=== PATIENT | male | born 1935 | race Caucasian/White ===

== ENCOUNTER 2016-11-15 14:22 | Inpatient (IN) | payer MEDICARE, OTHER ==
--- NOTE | ~2016-11-15 | HP ---
History And Physical [place] [id number] [facility] [place]. [address] NAME: BERT OH : 37 STATUS : ADM IN [facility]#: [id number] AGE: 81 ADM/REG DATE : 11/15/16 MR#: [id number] REPORT SERV DATE: 11/15/16 DICTATED BY: Jere BLANCAS DATE: 11/15/16 REPORT STATUS : Draft TRANSCRIBED BY: MODL DATE: 11/15/16 DATE OF ADMISSION: 11/15/2016 HISTORY OF PRESENT ILLNESS: 81-year-old male, transferred from [facility] for further evaluation, initially presented there on 11/13/2016 with nausea and vomiting, found to have metabolic acidosis and acute kidney injury with concern for sepsis, has been treated with multiple antibiotics there including Levaquin, Zosyn, and Flagyl. Evaluation of the gallbladder there with ultrasound did show gallstones and gallbladder wall thickening. He does have elevated liver test. He has had a renal ultrasound that showed no hydronephrosis and no stones and an echocardiogram that shows ejection fraction of 60%. The patient's elevated lactate is perplexing as it is markedly elevated and greatly out of proportion to how it looks clinically suggesting the possibility of lab error. The patient will now be admitted to [facility] for further evaluation and treatment. PAST MEDICAL HISTORY: Includes atrial fibrillation with rapid ventricular response, currently rate controlled on oral beta nikolai. The patient is on home Coumadin but this is currently held. History of renal stones with prior lithotripsy, hypertension, hyperlipidemia, coronary disease, esophageal stricture, and dementia. SOCIAL HISTORY: Lives independently. No alcohol, tobacco, or drugs. REVIEW OF SYSTEMS: As per HPI, specifically, negative for high fever or shaking chills. No melena, hematochezia, hemoptysis, or hematuria. All other systems are negative except those mentioned above. FAMILY HISTORY: Positive for heart disease. PHYSICAL EXAMINATION: VITAL SIGNS: Temperature is 96.0, heart rate 78 and irregular, respirations 16, and blood pressure 114/71. GENERAL: Conversant male, in no distress. HEENT: Pupils equal, round, and reactive to light. Extraocular muscles are intact. Oropharynx is clear. NECK: Without JVD, thyromegaly, or bruit. LUNGS: Clear. HEART: Irregular without murmur, rub, or gallop. ABDOMEN: Soft. Positive bowel sounds without organomegaly or mass. The patient has no Gonzales sign. No particular abdominal tenderness or peritoneal signs. EXTREMITIES: No edema. Pulses are trace. SKIN: Without rash or ecchymotic area. JOINTS: Without synovitis, effusion, or deformity. Diffuse osteoarthritic change was noted. NEUROLOGIC: Cranial nerves grossly intact. Motor exam is nonfocal. Sensation unremarkable. Gait was not assessed. AVAILABLE DATA: All labs from [facility], values show sodium 136, potassium 4.3, chloride History And Physical [address] [address] NAME: BERT OH : 37 STATUS : ADM IN [facility]#: [id number] AGE: 81 ADM/REG DATE : 11/15/16 MR#: [id number] REPORT SERV DATE: 11/15/16 DICTATED BY: Jere BLANCAS DATE: 11/15/16 REPORT STATUS : Draft TRANSCRIBED BY: MODL DATE: 11/15/16 105, bicarb 18, BUN 38, creatinine 2.0, glucose 74, bilirubin is 4.6, alkaline phosphatase is 58, AST 172, ALT 96, magnesium 1, troponin 0.22. White count is 15.9, hemoglobin 11.7, hematocrit 35.4, and platelets 55. INR is 1.7. Procalcitonin 43. Flu A and B were negative. IMPRESSION: An 81-year-old male patient with gallstones and gallbladder wall thickening in the setting consistent with sepsis. Other issues include metabolic acidosis of uncertain etiology or severity. Multiple comorbidities as outlined above. PLAN: Admit telemetry bed. Attending Dr. Carlos Blancas. Consult to General Surgery, Dr. Gunter to further evaluate for gallstones. Electrolyte replacement guidelines. Full code status. Clear liquids as tolerated. Routine vitals. Repeat data panel to include CBC, CMP, TSH, stat lactate level, and procalcitonin. Check HIDA scan for 11/16/2016. Hydrate with saline at 125 an hour. Reasonable pain and nausea control will be offered. We will continue Zosyn at 3.375 IV q.8 hours and follow up on procalcitonin and CBC levels as well as observation of his clinical course. Further recommendations pending ongoing evaluation of his data and clinical picture as well as input from Dr. Gunter from General Surgery. [facility]L Jere Blancas M.D. / [id number] CC: Jere Blancas M.D.
--- NOTE | ~2016-11-15 | CN ---
Consultation Report [facility] [address] [place]. [address] NAME: BERT OH : 36 STATUS : ADM IN PAT#: [id number] AGE: 81 ADM/REG DATE : 11/15/16 MR#: [id number] REPORT SERV DATE: 11/23/16 DICTATED BY: TANGELA WEBB DATE: 11/23/16 REPORT STATUS : Draft TRANSCRIBED BY: MODL DATE: 11/23/16 CARDIOLOGY CONSULTATION DATE OF CONSULTATION: 11/23/2016 HISTORY OF PRESENT ILLNESS: The patient is an 81-year-old, white male, who initially presented to [facility] with complaints of nausea, vomiting, and palpitations and was treated there for metabolic acidosis and possible sepsis. He was also given intravenous Cardizem for atrial fibrillation with a rapid ventricular response. He was found there to have gall stones and gallbladder wall thickening and continued to have abdominal pain, and was transferred here to [facility] for further treatment. He is now status post laparoscopic cholecystectomy for gangrenous cholecystitis as well as repair of an incarcerated umbilical hernia. This operation was performed on 11/16/2016. We were consulted for evaluation of his atrial fibrillation, since he is noted to have some bradycardia at night with rates dropping into the low 30s with close to 2 second pauses. He has been on atenolol and digoxin for rate control. Currently, the patient is hemodynamically stable with heart rate in the 50s. Digoxin was held today but the patient did receive 50 mg of atenolol this morning. Complicating his other medical conditions, the patient has apparently began experiencing alcohol withdrawal symptoms. He received some Ativan last night and is currently somewhat drowsy and disoriented. He is resting quietly in bed, in no acute distress, and is able to answer simple questions but is a very poor historian. 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 PAST SURGICAL HISTORY: Includes previous cardiac stenting. The patient's last cardiac catheterization was done on 08/03/2015, which showed patent stents in LAD and RCA with hemodynamically insignificant lesion in the mid distal LAD as well as the mid RCA. The patient's left ventricular ejection fraction was 55% at that time. SOCIAL HISTORY: The patient denies history of smoking. He does have a significant history of alcohol use but no illicit drug use. FAMILY HISTORY: Positive for coronary artery disease in both parents. REVIEW OF SYSTEMS: The patient had significant nausea, vomiting, and diarrhea upon presentation to [facility]. He denies any significant chest pain or shortness of breath. He denies any syncope or presyncope. He does report some dizziness currently and describes it as looking like the Consultation Report [address] [place]. [address] NAME: BERT OH : 37 STATUS : ADM IN PAT#: [id number] AGE: 81 ADM/REG DATE : 11/15/16 MR#: [id number] REPORT SERV DATE: 11/23/16 DICTATED BY: ATNGELA WEBB DATE: 11/23/16 REPORT STATUS : Draft TRANSCRIBED BY: DILEEP DATE: 11/23/16 room is moving. Of note, the review of systems is rather limited due to patient's mental status currently. PHYSICAL EXAMINATION: VITAL SIGNS: Blood pressure is 179/77, heart rate is 54 and irregular, respirations are 18 and nonlabored. The patient is afebrile. GENERAL APPEARANCE: The patient is a chronically ill-appearing, elderly, white male, in no acute distress. HEENT: Unremarkable. NECK: Shows no jugular venous distention with good carotid upstroke. No carotid bruit is appreciated. CHEST: Clear to auscultation bilaterally with diminished breath sounds at the bases. CARDIOVASCULAR: PMI is nondisplaced. S1 is variable, S2 is narrowly split. No gallop is present. ABDOMEN: Soft and nonfocal with surgical incisions noted to be clean, dry, and intact. Bowel sounds are positive. EXTREMITIES: Show no cyanosis, clubbing, or edema. SKIN: Warm and dry with no pallor or icterus. NEURO/PSYCH: The patient is alert and answers simple questions although he is somewhat disoriented in some of his responses and do not make sense at times. He can state the correct year, but thinks that he is in a hospital in [place] currently. No focal neuro deficits are noted. LABORATORY AND DIAGNOSTIC DATA: EKG from yesterday shows atrial fibrillation with a rate of 55 beats per minute. There is a left anterior tracy-block, as well as nonspecific ST-T changes, a prolonged QTc interval of 512 milliseconds. No acute injury pattern is present. Monitor strips show atrial fibrillation with several episodes of bradycardia down to the low 30s and a pause of up to 1.8 seconds. Chemistry panel from today shows a sodium of 138, potassium 3.9, BUN of 10, and creatinine 0.8. CBC from yesterday shows white count of 11, hemoglobin 13.1, hematocrit 38.5, platelet count of 155. Digoxin level drawn yesterday was 0.7. An echocardiogram done at [facility] on 11/13/2016 shows a normal left ventricular ejection fraction of 60%. There is aortic valve sclerosis with mild aortic insufficiency. There is mild mitral regurgitation, left ventricular hypertrophy, and dilated right heart structures with evidence of severe pulmonary artery hypertension with a pulmonary artery systolic pressure of 70-75 mmHg. This echo appears largely unchanged from the one that he had at [facility] in 2015. IMPRESSION: 1. Chronic atrial fibrillation with probable sick sinus syndrome. 2. Coronary artery disease, status post previous stenting. 3. Essential hypertension. 4. Pulmonary artery hypertension. 5. Acute cholecystitis and sepsis, now resolved status post cholecystectomy. 6. History of deep vein thrombosis and pulmonary embolism. 7. History of alcohol abuse and delirium with probable underlying dementia. Consultation Report [address] [address] NAME: BERT OH : 36 STATUS : ADM IN [facility]#: [id number] AGE: 81 ADM/REG DATE : 11/15/16 MR#: [id number] REPORT SERV DATE: 11/23/16 DICTATED BY: TANGELA WEBB DATE: 11/23/16 REPORT STATUS : Draft TRANSCRIBED BY: MODL DATE: 11/23/16 PLAN: 1. Hold digoxin and beta nikolai and monitor heart rate. 2. Check overnight oximetry to screen for sleep apnea. 3. Use electrolyte protocol as needed. 4. Consider electrophysiology consultation. Thank you for the opportunity to participate in the care of this patient. We will follow with you. [place]EREM[place]/DILEEP Tangela Webb NP / [id number] CC: Regina English MD Steven Stubblefield, M.D., F.A.C.C.
--- NOTE | ~2016-11-15 | CN ---
Consultation Report [facility] [address] [place]. [address] NAME: BERT OH : 37 STATUS : ADM IN [facility]#: [id number] AGE: 81 ADM/REG DATE : 11/15/16 MR#: [id number] REPORT SERV DATE: 11/16/16 DICTATED BY: DAREN REID DATE: 11/16/16 REPORT STATUS : Draft TRANSCRIBED BY: MODL DATE: 11/16/16 SURGICAL CONSULTATION DATE OF CONSULTATION: 11/16/2016 HISTORY OF PRESENT ILLNESS: This 81-year-old gentleman presents with admission to the hospital on 11/13/2016 in [facility]. He had nausea, vomiting, and palpitations. He has a history of atrial fibrillation with rapid ventricular rate. He also has a history of coronary artery disease, esophageal stenosis, and DVT with Ella filter. He was evaluated and continued to have right back pain and was transferred to [facility]. The patient had previous documentation showing cholelithiasis with cholecystitis. He had a bilirubin elevated to 6 mg/dL initially, which is now improving consistent with passage of a common duct stone. The patient had a HIDA scan today that revealed nonvisualization of the gallbladder consistent with acute cholecystitis. The contrast passed easily into the GI tract with no evidence of any common duct obstruction. On exam, the patient's abdomen has minimal right upper quadrant tenderness with no rebound, guarding, or mass. He and his sister are aware of the risks, benefits, and alternatives of the procedure and wished to proceed. They have been given the option of restarting his anticoagulation in the light of his history of DVTs and atrial fibrillation and observation, and they wished to proceed with surgery. PAST MEDICAL HISTORY: As above. PAST SURGICAL HISTORY: Silas filter, penile surgery, and angiograms. ALLERGIES: NO KNOWN DRUG OR LATEX ALLERGIES. MEDICATIONS: Please see hospital chart. SOCIAL HISTORY: The patient denies any current alcohol, tobacco, or illicit drug usage. He dipped snuff and drank alcohol in the past. FAMILY HISTORY: Positive for coronary artery disease. REVIEW OF SYSTEMS: No current headache, blurred vision, dizziness, chest pain, shortness of breath, cough, dyspnea on exertion, syncope, palpitations, jaundice, or itching. PHYSICAL EXAMINATION: GENERAL: Well-developed male in no apparent distress. NECK: Supple. No adenopathy. CARDIOVASCULAR: Irregular with a controlled rate. No murmur. ABDOMEN: Soft, nondistended, and nontender. The patient has an incarcerated umbilical hernia. There are no masses. Consultation Report [place] [address] [place] [address] NAME: BERT OH : 36 STATUS : ADM IN [facility]#: [id number] AGE: 81 ADM/REG DATE : 11/15/16 MR#: [id number] REPORT SERV DATE: 11/16/16 DICTATED BY: DAREN REID DATE: 11/16/16 REPORT STATUS : Draft TRANSCRIBED BY: DILEEP DATE: 11/16/16 BACK: No CVA tenderness. EXTREMITIES: No clubbing, cyanosis, edema, or jaundice. LABORATORY DATA: Please see hospital chart. ASSESSMENT: 1. Acute cholelithiasis with recent acute cholecystitis and choledocholithiasis with sepsis. 2. Probable passage of common bile duct stone clinically with no evidence of obstruction on the HIDA scan today. 3. Atrial fibrillation with rapid ventricular rate. 4. History of deep vein thrombosis with Silas filter. PLAN: At this time, the patient wishes to proceed with laparoscopic cholecystectomy. He is aware of the risks, benefits, and alternatives including bleeding, infection, poor cosmetic result, chronic pain, injury to the common bile duct and other intraabdominal structures, and wishes to proceed. He is also aware of the potentials for hernia repair complications such as injury to abdominal structures and recurrence of the hernia. NAVYA/DILEEP Daren Reid M.D. / [id number] CC: Jere Aguayo M.D.
--- NOTE | ~2016-11-15 | DS ---
Discharge Summary [place] [address] [facility] [place]. [address] NAME: BERT OH : 37 STATUS : DIS IN PAT#: [id number] AGE: 81 ADM/REG DATE : 11/15/16 MR#: [id number] REPORT SERV DATE: 11/27/16 DICTATED BY: HERMILO TERAN DATE: 11/26/16 REPORT STATUS : Draft TRANSCRIBED BY: MODL DATE: 11/26/16 ADMISSION DATE: 11/15/2016 DISCHARGE DATE: 11/26/2016 DIAGNOSES: 1. Acute gangrenous cholecystitis, status post lap cholecystectomy. 2. Sepsis secondary to above, resolved. 3. Incarcerated hernia, status post repair. 4. History of atrial fibrillation. 5. Transient bradycardia. 6. Debility. 7. Postop respiratory failure. 8. Hypertension. 9. Cholelithiasis. FOLLOWUP: The patient is to follow up with general surgeon, Dr. Gunter in 1 week and also he has written orders for criss to be removed at the rehab center on 12/01/2016. The patient should follow up with radiology physician, Dr. Mckinley, in 3 to 4 weeks and to follow up with the primary care physician in 1 to 2 weeks. Also, while at rehab, the patient is to have an INR checked every week with a goal INR of 2 to 3. The patient to be referred by primary care for an outpatient sleep study after recovering. HOSPITALIST: 1. Jere Aguayo M.D. 2. Dr. Teran. 3. Critical Care and and Colleagues. CONSULTANTS: 1. General Surgery, Dr. Carlos A Kinney, Dr. Gunter, and Dr. Luque. 2. Cardiology with Dr. Mckinley. PROCEDURES: On 11/16/2016, the patient had primary repair of an incarcerated umbilical hernia and a lap cholecystectomy and an open primary common bowel duct repair of a 4-mm common ductotomy after a cystic duct avulsion during gallbladder dissection. HOSPITAL COURSE: Please see H and P dictated by Jere Aguayo M.D. This is an 81-year-old male with a past medical history of atrial fibrillation on Coumadin as well as a history of hypertension, hyperlipidemia, and some dementia was transferred from [facility] to [facility]. The patient presented to [facility] with nausea, vomiting, acute kidney injury, sepsis, metabolic acidosis, and treated with multiple antibiotics. His gallbladder was evaluated and found to have gallstones and gallbladder wall thickening and also serum with some elevated LFTs. The patient was transferred to [facility], and initially cared for by Dr. Carlos Aguayo with a General Surgery consultation with Discharge Summary [address] [address] NAME: BERT OH : 36 STATUS : DIS IN PAT#: [id number] AGE: 81 ADM/REG DATE : 11/15/16 MR#: [id number] REPORT SERV DATE: 11/27/16 DICTATED BY: HERMILO TERAN DATE: 11/26/16 REPORT STATUS : Draft TRANSCRIBED BY: DILEEP DATE: 11/26/16 Dr. Gunter, and the patient had a HIDA scan which revealed evidence for a cystic duct obstruction with a non-visualization of the gallbladder after 4 hours. The patient was sent to the OR by the general surgeon, Dr. Gunter for a cholecystectomy on 11/16/2016. The patient was transferred to the ICU postop for postop respiratory failure and required prolonged intubation. The patient was extubated and later transferred out of the ICU and placed back on to a regular bed, for which at that time the patient was returned to the Hospitalist Service and cared for by Dr. Teran on 11/21/2016. The patient continued to be followed by General Surgery. Also, he completed his IV antibiotics with IV Zosyn. The patient did not have any recurrence of RVR, but at nighttime was having significant bradycardia to the low 30s, but was asymptomatic. He was on digoxin and atenolol at that time. Cardiology was consulted and seen by Dr. Mckinley and Cardiology discontinued the patient's cardiac med and agreed with discontinuing the digoxin and atenolol, and the patient's heart rate remained controlled thereafter. He continued on his Coumadin and at the time of discharge, INR was therapeutic at 2.3. The patient also received physical therapy during his hospital course. At the time of discharge, the patient was eating well with no nausea and vomiting. No abdominal pain. The vital signs were stable and clinically and hemodynamically stable for discharge and approved for discharge by all specialists. This discharge required greater than 30 minutes. The patient is being discharged to [facility], and the family informed. [facility]/DILEEP Hermilo Teran M.D. / [id number] CC: Hermilo Teran M.D. UNKNOWN Regina Lipscomb M.D., F.A.C.C. Daren Gunter M.D.
--- NOTE | ~2016-11-15 | OP ---
Record Of Operation [facility] [address] [place]. [address] NAME: BERT OH : 37 STATUS : ADM IN [facility]#: [id number] AGE: 81 ADM/REG DATE : 11/15/16 MR#: [id number] REPORT SERV DATE: 11/17/16 DICTATED BY: DAREN REID DATE: 11/16/16 REPORT STATUS : Draft TRANSCRIBED BY: MODL DATE: 11/16/16 DATE OF PROCEDURE: 11/16/2016 PREOPERATIVE DIAGNOSES: 1. Cholelithiasis with acute cholecystitis and sepsis. 2. Biliary obstruction with probable passage of common bile duct stone clinically. 3. Atrial fibrillation, with Coumadin. 4. Hypertension. 5. Thrombocytopenia. 6. Incarcerated umbilical hernia. POSTOPERATIVE DIAGNOSES: 1. Gangrenous cholecystitis. 2. Incarcerated umbilical hernia. PROCEDURE: 1. Primary repair of incarcerated umbilical hernia. 2. Laparoscopic cholecystectomy. 3. Open primary common bile duct repair of 4 mm common ductotomy after cystic duct avulsion during gallbladder dissection. FINDINGS: The patient underwent cholecystectomy and was noted to have gangrenous cholecystitis after umbilical hernia repair. He was noted to have an avulsion of the cystic duct during hydrodissection. The cystic duct stump was approximately 4 mm, and the patient was noted to have a small 4 mm hole on the side of the common duct as he was felt to have a very small cystic duct. A cholangiogram was obtained and decision was made to close this small hole primarily in light of the severe inflammation and comorbidities. OPERATIVE TECHNIQUE: The patient was brought to the operative room, placed on the table in supine position. He had preoperative IV antibiotics. He had OG tube and Tillman catheter. A time-out was completed. Local anesthesia was instilled to the periumbilical skin. A 15 blade knife was used to make incision through the base of the umbilicus. The hernia sac was identified. It was circumferentially dissected along with the incarcerated preperitoneal fat and omentum and was excised and divided and sent to pathology. A finger was inserted in the abdomen. There was no evidence of any other adhesions. The 11 mm trocar was inserted into the abdomen and 15 mm of pneumoperitoneum was obtained. The laparoscope was inserted. There was no evidence of any trocar injury. He was then placed in reverse Trendelenburg and rolled to the left. The patient's gallbladder was not visible secondary to omental adhesions and very dense strict adhesions of the transverse colon to the gallbladder. The dissection began, after an 11 mm subxiphoid and two 5 mm right upper quadrant trocars were placed under direct visualization. Atraumatic graspers were used to elevate the edge of the liver edge until 1 small probe of the gallbladder was identified as it was necrotic. This allowed hydrodissection and careful blunt dissection on the gallbladder wall and the transverse colon was dissected away from the gallbladder. The gallbladder was then aspirated. It was noted to have hydrops and purulent aspirate. Some of the aspirate was sent for culture. The dissection was then began circumferentially using hydrodissection Record Of [address] [place]. [address] NAME: BERT OH : 37 STATUS : ADM IN [facility]#: [id number] AGE: 81 ADM/REG DATE : 11/15/16 MR#: [id number] REPORT SERV DATE: 11/17/16 DICTATED BY: DAREN REID DATE: 11/16/16 REPORT STATUS : Draft TRANSCRIBED BY: MODL DATE: 11/16/16 only. The dissection continued till the infundibulum was identified. It was retracted inferolaterally as best possible, mobilization of the cystic duct at the cystic duct gallbladder junction as the hydrodissection was being used on the medial side between the cystic duct and the cystic artery. The cystic duct stump, which was very short, avulsed from the lateral edge of what appeared to be the common bile duct. It was uncertain secondary to the significant inflammatory thickening. The cystic artery was then completely encircled. It was clipped twice proximally and cauterized on the gallbladder. The gallbladder was then removed from the fossa using electrocautery hook except for one small remnant that was left for retraction. An attempted cholangiogram was then obtained and the biliary radicles were seen and contrast did flow into the duodenum. It was uncertain secondary to contrast leak remnant of the remaining cystic duct or the lateral aspect of the common bile duct. For this reason, I attempted the small 3 to 4 mm hole, which was visualized. I had an attempt at closure with laparoscopically but the angle not sufficient. The decision was then made to open and at this point, a right upper quadrant incision was made after all the instruments and trocars were removed. The abdomen was then entered. The irrigant fluid was aspirated. The rest of the gallbladder was removed from the superior aspect of the fundus and sent to pathology. The wound was then thoroughly irrigated. The ductotomy was then closed with interrupted 4-0 PDS suture in an interrupted fashion. Three sutures were placed under direct visualization to not encroach lateral wall more superficial. There was no evidence of leak after the suture. The abdomen was then thoroughly irrigated, and hemostasis of the hepatic fossa was obtained using electrocautery. Some Tisseel was then placed over the repair. Omentum was then placed in the hepatic fossa and a drain was placed in the right lateral gutter through a separate stab incision that was brought out the right lateral lower trocar site. It was secured to the skin with nonabsorbable suture and placed a drain suction upon abdominal closure. At this point, the umbilical fascia was reapproximated without tension using a 0 Vicryl running suture. The wound was examined. There was no evidence of any bowel leak or other abnormalities. The posterior peritoneum was reapproximated using a running 0 Vicryl suture. Subcutaneous tissues were then thoroughly irrigated, and the fascia was reapproximated in a running looped #1 PDS suture. The skin edges of all three incisions were then closed with criss. The patient was taken to the ICU intubated and critical condition after central line. All sponge and needle counts were reported correct. DH/MODL Daren Reid M.D. / [id number] CC: Duncan Colon MD
--- NOTE | ~2016-11-15 | PUL ---
[id number] [place]. [address] NAME: BERT OH : 37 STATUS : ADM IN [facility]#: [id number] AGE: 81 ADM/REG DATE : 11/15/16 MR#: [id number] REPORT SERV DATE: 11/25/16 DICTATED BY: KELLY CHAO DATE: 11/25/16 REPORT STATUS : Draft TRANSCRIBED BY: MODL DATE: 11/25/16 PULMONARY FUNCTION TEST PROCEDURE PERFORMED: Overnight oximetry performed on room air. The patient spent over 10 minutes with an oxygen saturation less than 88% and had an elevated saturation event index. IMPRESSION: Abnormal study suggestive of sleep-disordered breathing. Consider formal sleep study if clinically indicated. The patient does meet criteria for supplemental oxygen. GENNA/DILEEP Kelly Chao M.D. / [id number] CC: Seble Wilcox M.D.
[~2016-11-15 14:22] MED LIST: ATEN50 PO; AXID150 MG PO; CELEXA20 PO; COUMADIN4 MG PO; FLOMAX4 PO; PRIN20 PO
[2016-11-15] MEDS ORDERED: LAN125 PO (15:15)
[2016-11-15] MEDS ORDERED: CELEXA20 PO (15:15)
[2016-11-15] MEDS ORDERED: CRESTOR10 PO ×2 (15:15)
[2016-11-15] MEDS ORDERED: ATEN100 PO (15:15)
[2016-11-15] MEDS ORDERED: NORV5 PO (15:16)
[2016-11-15] MEDS ORDERED: COUMADIN4 MG PO (15:16)
[2016-11-15 17:00] LABS: BASOPHILS 0.1 %; BASOPHILS ABSOLUTE 0.02 10/3/uL (0.0-0.16); EOSINOPHILS 0.2 %; EOSINOPHILS ABSOLUTE 0.03 10/3/uL (0.0-0.53); HEMATOCRIT 35.3 % (40.0-51.0); HEMOGLOBIN 12.2 g/dL (13.6-17.8); IMMATURE GRANULOCYTES 0.7 %; IMMATURE GRANULOCYTES ABSOLUTE 0.09 10/3/uL (0.0-0.11); LYMPHOCYTES 4.8 %; LYMPHOCYTES ABSOLUTE 0.64 10/3/uL (0.67-4.30); MEAN CORPUS HGB CONC 34.6 g/dL (32.0-36.0); MEAN CORPUSCULAR HEMOGLOB 33.2 pg (26.0-34.0); MEAN CORPUSCULAR VOLUME 95.9 fL (80-100); MEAN PLATELET VOLUME 10.6 fL (9.2-13.0); MONOCYTES 3.1 %; MONOCYTES ABSOLUTE 0.42 10/3/uL (0.21-1.20); NEUTROPHILS 91.1 %; NEUTROPHILS ABSOLUTE 12.16 10/3/uL (2.02-8.40); RBC DISTRIBUTION WIDTH 16.1 % (12.0-16.0); RED CELL COUNT 3.68 10/6/uL (4.7-6.1); WHITE BLOOD CELLS 13.4 10/3/uL (4.5-10.5)
[2016-11-15 17:04] LABS: MANUAL DIFF NO %
[2016-11-15 17:22] LABS: ALBUMIN 2.4 G/DL (3.5-5.0); CHLORIDE, SERUM 104 MMOL/L (96-112); GLUCOSE, SERUM 113 MG/DL (60-99); POTASSIUM, SERUM 4.2 MMOL/L (3.5-5.3); SGOT(AST) 163 U/L (5-40); SGPT(ALT) 94 U/L (5-65); SODIUM, SERUM 139 MMOL/L (135-148); TOTAL PROTEIN 5.7 G/DL (6.0-8.5)
[2016-11-15 17:23] LABS: A/G RATIO 0.7 (0.7-1.9); ALKALINE PHOSPHATASE 73 U/L (45-117); BUN (BLOOD UREA NITROGEN) 37 MG/DL (6-23); CO2 (CARBON DIOXIDE) 25 MMOL/L (24-34); CREATININE 1.97 MG/DL (0.70-1.30); GFR AFRICAN AMERICAN 36 ML/MIN (>=60); GFR NON AFRICAN AMERICAN 31 ML/MIN (>=60); GLOBULIN 3.3 G/DL (2.5-4.1); TOTAL BILIRUBIN 3.3 MG/DL (0-1.2)
[2016-11-15 17:59] LABS: PLATELET COUNT 56 10/3/uL (150-400); PLATELET ESTIMATE DEC (ADEQUATE); RBC MORPHOLOGY NORM (NORMAL); TOXIC GRANULATION SLT
[2016-11-15 18:31] LABS: PROCALCITONIN 41.05 ng/mL (<0.5)
[2016-11-16 06:09] LABS: BASOPHILS 0.1 %; BASOPHILS ABSOLUTE 0.01 10/3/uL (0.0-0.16); EOSINOPHILS 0.3 %; EOSINOPHILS ABSOLUTE 0.04 10/3/uL (0.0-0.53); HEMATOCRIT 36.4 % (40.0-51.0); HEMOGLOBIN 12.4 g/dL (13.6-17.8); IMMATURE GRANULOCYTES 0.4 %; IMMATURE GRANULOCYTES ABSOLUTE 0.05 10/3/uL (0.0-0.11); LYMPHOCYTES ABSOLUTE 0.63 10/3/uL (0.67-4.30); MEAN CORPUS HGB CONC 34.1 g/dL (32.0-36.0); MEAN CORPUSCULAR HEMOGLOB 32.6 pg (26.0-34.0); MEAN CORPUSCULAR VOLUME 95.8 fL (80-100); MEAN PLATELET VOLUME 10.6 fL (9.2-13.0); MONOCYTES 4.2 %; MONOCYTES ABSOLUTE 0.53 10/3/uL (0.21-1.20); NEUTROPHILS ABSOLUTE 11.23 10/3/uL (2.02-8.40); PLATELET COUNT 65 10/3/uL (150-400); RBC DISTRIBUTION WIDTH 15.7 % (12.0-16.0); WHITE BLOOD CELLS 12.5 10/3/uL (4.5-10.5)
[2016-11-16 06:14] LABS: CALCIUM, SERUM 7.6 MG/DL (8.5-10.4); CHLORIDE, SERUM 106 MMOL/L (96-112); CO2 (CARBON DIOXIDE) 25 MMOL/L (24-34); CREATININE 1.65 MG/DL (0.70-1.30); GFR AFRICAN AMERICAN 45 ML/MIN (>=60); GFR NON AFRICAN AMERICAN 39 ML/MIN (>=60); MANUAL DIFF NO %; SODIUM, SERUM 142 MMOL/L (135-148)
[2016-11-16 06:17] LABS: BUN (BLOOD UREA NITROGEN) 32 MG/DL (6-23); GLUCOSE, SERUM 141 MG/DL (60-99)
[2016-11-16 14:08] LABS: BASOPHILS 0.2 %; BASOPHILS ABSOLUTE 0.02 10/3/uL (0.0-0.16); EOSINOPHILS 0.2 %; EOSINOPHILS ABSOLUTE 0.03 10/3/uL (0.0-0.53); HEMATOCRIT 39.5 % (40.0-51.0); HEMOGLOBIN 13.4 g/dL (13.6-17.8); IMMATURE GRANULOCYTES 0.6 %; IMMATURE GRANULOCYTES ABSOLUTE 0.07 10/3/uL (0.0-0.11); LYMPHOCYTES 5.7 %; LYMPHOCYTES ABSOLUTE 0.71 10/3/uL (0.67-4.30); MANUAL DIFF NO %; MEAN CORPUS HGB CONC 33.9 g/dL (32.0-36.0); MEAN CORPUSCULAR HEMOGLOB 32.7 pg (26.0-34.0); MEAN CORPUSCULAR VOLUME 96.3 fL (80-100); MEAN PLATELET VOLUME 11.1 fL (9.2-13.0); MONOCYTES 5.7 %; MONOCYTES ABSOLUTE 0.71 10/3/uL (0.21-1.20); NEUTROPHILS 87.6 %; NEUTROPHILS ABSOLUTE 10.93 10/3/uL (2.02-8.40); PLATELET COUNT 64 10/3/uL (150-400); RBC DISTRIBUTION WIDTH 15.8 % (12.0-16.0); WHITE BLOOD CELLS 12.5 10/3/uL (4.5-10.5)
[2016-11-16 14:10] LABS: PROTIME (NOT ORD) 22.2 SEC (12.0-14.5)
[2016-11-16 14:18] LABS: A/G RATIO 0.7 (0.7-1.9); ALBUMIN 2.3 G/DL (3.5-5.0); ALKALINE PHOSPHATASE 79 U/L (45-117); BUN (BLOOD UREA NITROGEN) 30 MG/DL (6-23); CALCIUM, SERUM 8.1 MG/DL (8.5-10.4); CHLORIDE, SERUM 107 MMOL/L (96-112); CO2 (CARBON DIOXIDE) 23 MMOL/L (24-34); CREATININE 1.64 MG/DL (0.70-1.30); GFR AFRICAN AMERICAN 45 ML/MIN (>=60); GFR NON AFRICAN AMERICAN 39 ML/MIN (>=60); GLOBULIN 3.4 G/DL (2.5-4.1); GLUCOSE, SERUM 176 MG/DL (60-99); POTASSIUM, SERUM 4.2 MMOL/L (3.5-5.3); SGOT(AST) 116 U/L (5-40); SGPT(ALT) 80 U/L (5-65); SODIUM, SERUM 142 MMOL/L (135-148); TOTAL BILIRUBIN 2.5 MG/DL (0-1.2); TOTAL PROTEIN 5.7 G/DL (6.0-8.5)
[2016-11-16 14:47] LABS: PLATELET ESTIMATE DEC (ADEQUATE); RBC MORPHOLOGY NORM (NORMAL)
[2016-11-16 21:40] LABS: HEMATOCRIT 35.4 % (40.0-51.0)
[2016-11-16 22:09] LABS: CARBOXYHEMOGLOBIN 0.6 % (0-3); HCO3 (ACTUAL BICARBONATE) 18.4 MEQ/L (23-27); HEMOBLOGIN CONTENT 12.6 G/DL (14-18); INSTRUMENT SERIAL # 8083; METHEMOGLOBIN 0.2 % (0-3); MODE CMV; PCO2 (CO2 TENSION) 33 MMHG (35-45); PO2 (O2 TENSION) 233 MMHG (79-93); SAMPLE Arterial; TIDAL VOLUME 650 ML; pH 7.37 (7.37-7.43)
[2016-11-17 04:52] LABS: BASOPHILS 0.2 %; BASOPHILS ABSOLUTE 0.02 10/3/uL (0.0-0.16); EOSINOPHILS 0.1 %; EOSINOPHILS ABSOLUTE 0.01 10/3/uL (0.0-0.53); HEMATOCRIT 34.5 % (40.0-51.0); HEMOGLOBIN 11.6 g/dL (13.6-17.8); IMMATURE GRANULOCYTES 0.7 %; IMMATURE GRANULOCYTES ABSOLUTE 0.07 10/3/uL (0.0-0.11); LYMPHOCYTES 8.5 %; LYMPHOCYTES ABSOLUTE 0.84 10/3/uL (0.67-4.30); MEAN CORPUS HGB CONC 33.6 g/dL (32.0-36.0); MEAN CORPUSCULAR HEMOGLOB 32.1 pg (26.0-34.0); MEAN CORPUSCULAR VOLUME 95.6 fL (80-100); MEAN PLATELET VOLUME 11.1 fL (9.2-13.0); MONOCYTES 8.9 %; MONOCYTES ABSOLUTE 0.88 10/3/uL (0.21-1.20); NEUTROPHILS 81.6 %; NEUTROPHILS ABSOLUTE 8.05 10/3/uL (2.02-8.40); PLATELET COUNT 63 10/3/uL (150-400); RED CELL COUNT 3.61 10/6/uL (4.7-6.1); WHITE BLOOD CELLS 9.9 10/3/uL (4.5-10.5)
[2016-11-17 04:54] LABS: MANUAL DIFF NO %
[2016-11-17 05:09] LABS: A/G RATIO 0.8 (0.7-1.9); ALBUMIN 2.5 G/DL (3.5-5.0); ALKALINE PHOSPHATASE 76 U/L (45-117); BUN (BLOOD UREA NITROGEN) 28 MG/DL (6-23); CALCIUM, SERUM 8.1 MG/DL (8.5-10.4); CHLORIDE, SERUM 109 MMOL/L (96-112); CO2 (CARBON DIOXIDE) 22 MMOL/L (24-34); CREATININE 1.28 MG/DL (0.70-1.30); GFR AFRICAN AMERICAN 61 ML/MIN (>=60); GFR NON AFRICAN AMERICAN 53 ML/MIN (>=60); GLOBULIN 3.3 G/DL (2.5-4.1); GLUCOSE, SERUM 183 MG/DL (60-99); POTASSIUM, SERUM 3.9 MMOL/L (3.5-5.3); SGOT(AST) 79 U/L (5-40); SGPT(ALT) 62 U/L (5-65); SODIUM, SERUM 144 MMOL/L (135-148); TOTAL BILIRUBIN 2.4 MG/DL (0-1.2); TOTAL PROTEIN 5.8 G/DL (6.0-8.5)
[2016-11-17 05:48] LABS: PLATELET ESTIMATE DEC (ADEQUATE); RBC MORPHOLOGY NORM (NORMAL)
[2016-11-17 07:01] LABS: INTERNATIONAL NORMAL RATI 1.5 UNITS (-); PROTIME (NOT ORD) 18.3 SEC (12.0-14.5)
[2016-11-18 05:36] LABS: BASOPHILS 0.5 %; BASOPHILS ABSOLUTE 0.05 10/3/uL (0.0-0.16); EOSINOPHILS 0.3 %; EOSINOPHILS ABSOLUTE 0.03 10/3/uL (0.0-0.53); HEMATOCRIT 34.8 % (40.0-51.0); HEMOGLOBIN 11.9 g/dL (13.6-17.8); IMMATURE GRANULOCYTES 1.4 %; IMMATURE GRANULOCYTES ABSOLUTE 0.14 10/3/uL (0.0-0.11); LYMPHOCYTES 9.9 %; MEAN CORPUS HGB CONC 34.2 g/dL (32.0-36.0); MEAN CORPUSCULAR HEMOGLOB 32.7 pg (26.0-34.0); MEAN CORPUSCULAR VOLUME 95.6 fL (80-100); MEAN PLATELET VOLUME 11.8 fL (9.2-13.0); MONOCYTES ABSOLUTE 1.82 10/3/uL (0.21-1.20); NEUTROPHILS 69.9 %; NEUTROPHILS ABSOLUTE 7.05 10/3/uL (2.02-8.40); PLATELET COUNT 70 10/3/uL (150-400); RBC DISTRIBUTION WIDTH 16.4 % (12.0-16.0); RED CELL COUNT 3.64 10/6/uL (4.7-6.1); WHITE BLOOD CELLS 10.1 10/3/uL (4.5-10.5)
[2016-11-18 05:41] LABS: MANUAL DIFF NO %
[2016-11-18 05:52] LABS: BUN (BLOOD UREA NITROGEN) 26 MG/DL (6-23); CHLORIDE, SERUM 113 MMOL/L (96-112); CO2 (CARBON DIOXIDE) 24 MMOL/L (24-34); CREATININE 1.34 MG/DL (0.70-1.30); GFR AFRICAN AMERICAN 58 ML/MIN (>=60); GFR NON AFRICAN AMERICAN 50 ML/MIN (>=60); GLUCOSE, SERUM 202 MG/DL (60-99); PHOSPHORUS, SERUM 1.8 MG/DL (2.5-4.5); POTASSIUM, SERUM 3.6 MMOL/L (3.5-5.3); SODIUM, SERUM 147 MMOL/L (135-148)
[2016-11-18 06:25] LABS: PLATELET ESTIMATE DEC (ADEQUATE); RBC MORPHOLOGY NORM (NORMAL)
[2016-11-19 04:40] LABS: HEMATOCRIT 36.2 % (40.0-51.0); HEMOGLOBIN 12.2 g/dL (13.6-17.8); MEAN CORPUS HGB CONC 33.7 g/dL (32.0-36.0); MEAN CORPUSCULAR HEMOGLOB 32.5 pg (26.0-34.0); MEAN CORPUSCULAR VOLUME 96.5 fL (80-100); MEAN PLATELET VOLUME 11.2 fL (9.2-13.0); RBC DISTRIBUTION WIDTH 16.7 % (12.0-16.0); RED CELL COUNT 3.75 10/6/uL (4.7-6.1); WHITE BLOOD CELLS 12.2 10/3/uL (4.5-10.5)
[2016-11-19 04:44] LABS: MANUAL DIFF YES %; PLATELET COUNT 99 10/3/uL (150-400)
[2016-11-19 04:48] LABS: BUN (BLOOD UREA NITROGEN) 19 MG/DL (6-23); CHLORIDE, SERUM 112 MMOL/L (96-112); CO2 (CARBON DIOXIDE) 25 MMOL/L (24-34); CREATININE 1.07 MG/DL (0.70-1.30); GFR AFRICAN AMERICAN 76 ML/MIN (>=60); GFR NON AFRICAN AMERICAN 65 ML/MIN (>=60); GLUCOSE, SERUM 208 MG/DL (60-99); POTASSIUM, SERUM 3.4 MMOL/L (3.5-5.3); SODIUM, SERUM 147 MMOL/L (135-148)
[2016-11-19 06:24] LABS: ANISOCYTOSIS 1+ (5-10/OIF) (0-5/OIF); ATYPICAL LYMPH FEW (3-5%) (0-5%); BAND NEUTROPHILS 5 %; IMMATURE GRANS ABSOLUTE (CALC) 0.12 10/3/uL (0.0-0.11); LYMPHOCYTES 16 %; LYMPHOCYTES ABSOLUTE (CALC) 1.95 10/3/uL (0.67-4.30); MONOCYTES 3 %; MONOCYTES ABSOLUTE (CALC) 0.37 10/3/uL (0.21-1.20); MYELOCYTES 1 %; NEUTROPHILS ABSOLUTE (CALC) 9.76 10/3/uL (2.02-8.40); PLATELET ESTIMATE DEC (ADEQUATE); RBC MORPHOLOGY ABN (NORMAL); SEGMENTED NEUTROPHIL (0) 75 %; TOTAL NUCLEATED CELLS 100
[2016-11-19 09:57] LABS: ALBUMIN 2.3 G/DL (3.5-5.0); ALKALINE PHOSPHATASE 76 U/L (45-117); DIRECT BILIRUBIN 1.3 MG/DL (0.0-0.4); SGOT(AST) 47 U/L (5-40); SGPT(ALT) 42 U/L (5-65); TOTAL BILIRUBIN 2.3 MG/DL (0-1.2); TOTAL PROTEIN 5.7 G/DL (6.0-8.5)
[2016-11-20 03:48] LABS: BASOPHILS 0.6 %; BASOPHILS ABSOLUTE 0.07 10/3/uL (0.0-0.16); EOSINOPHILS 1.2 %; EOSINOPHILS ABSOLUTE 0.14 10/3/uL (0.0-0.53); HEMOGLOBIN 12.4 g/dL (13.6-17.8); IMMATURE GRANULOCYTES 2.1 %; IMMATURE GRANULOCYTES ABSOLUTE 0.24 10/3/uL (0.0-0.11); LYMPHOCYTES 12.1 %; LYMPHOCYTES ABSOLUTE 1.41 10/3/uL (0.67-4.30); MEAN CORPUS HGB CONC 34.4 g/dL (32.0-36.0); MEAN CORPUSCULAR HEMOGLOB 32.7 pg (26.0-34.0); MEAN PLATELET VOLUME 10.9 fL (9.2-13.0); MONOCYTES 9.6 %; MONOCYTES ABSOLUTE 1.12 10/3/uL (0.21-1.20); NEUTROPHILS 74.4 %; NEUTROPHILS ABSOLUTE 8.65 10/3/uL (2.02-8.40); RBC DISTRIBUTION WIDTH 16.4 % (12.0-16.0); RED CELL COUNT 3.79 10/6/uL (4.7-6.1); WHITE BLOOD CELLS 11.6 10/3/uL (4.5-10.5)
[2016-11-20 03:51] LABS: MANUAL DIFF NO %; PLATELET COUNT 129 10/3/uL (150-400)
[2016-11-20 04:04] LABS: A/G RATIO 0.6 (0.7-1.9); ALBUMIN 2.1 G/DL (3.5-5.0); ALKALINE PHOSPHATASE 73 U/L (45-117); CALCIUM, SERUM 7.5 MG/DL (8.5-10.4); CHLORIDE, SERUM 107 MMOL/L (96-112); CO2 (CARBON DIOXIDE) 28 MMOL/L (24-34); CREATININE 0.93 MG/DL (0.70-1.30); GFR AFRICAN AMERICAN 90 ML/MIN (>=60); GFR NON AFRICAN AMERICAN 77 ML/MIN (>=60); GLOBULIN 3.4 G/DL (2.5-4.1); SGOT(AST) 35 U/L (5-40); SGPT(ALT) 36 U/L (5-65); SODIUM, SERUM 143 MMOL/L (135-148); TOTAL BILIRUBIN 2.5 MG/DL (0-1.2); TOTAL PROTEIN 5.5 G/DL (6.0-8.5)
[2016-11-20 04:05] LABS: BUN (BLOOD UREA NITROGEN) 14 MG/DL (6-23); GLUCOSE, SERUM 152 MG/DL (60-99)
[2016-11-20 18:26] LABS: INTERNATIONAL NORMAL RATI 2.2 UNITS (-)
[2016-11-20 18:27] LABS: PROTIME (NOT ORD) 24.6 SEC (12.0-14.5)
[2016-11-21 06:23] LABS: BASOPHILS 0.4 %; BASOPHILS ABSOLUTE 0.04 10/3/uL (0.0-0.16); EOSINOPHILS ABSOLUTE 0.22 10/3/uL (0.0-0.53); HEMATOCRIT 36.9 % (40.0-51.0); HEMOGLOBIN 12.7 g/dL (13.6-17.8); IMMATURE GRANULOCYTES 1.9 %; IMMATURE GRANULOCYTES ABSOLUTE 0.21 10/3/uL (0.0-0.11); LYMPHOCYTES 13.8 %; LYMPHOCYTES ABSOLUTE 1.51 10/3/uL (0.67-4.30); MEAN CORPUS HGB CONC 34.4 g/dL (32.0-36.0); MEAN CORPUSCULAR VOLUME 92.9 fL (80-100); MEAN PLATELET VOLUME 10.8 fL (9.2-13.0); MONOCYTES 8.4 %; MONOCYTES ABSOLUTE 0.92 10/3/uL (0.21-1.20); NEUTROPHILS 73.5 %; NEUTROPHILS ABSOLUTE 8.05 10/3/uL (2.02-8.40); PLATELET COUNT 161 10/3/uL (150-400); RBC DISTRIBUTION WIDTH 16.7 % (12.0-16.0); RED CELL COUNT 3.97 10/6/uL (4.7-6.1)
[2016-11-21 06:24] LABS: INTERNATIONAL NORMAL RATI 2.2 UNITS (-)
[2016-11-21 06:28] LABS: MANUAL DIFF NO %
[2016-11-21 06:30] LABS: ALBUMIN 2.1 G/DL (3.5-5.0); BUN (BLOOD UREA NITROGEN) 14 MG/DL (6-23); CALCIUM, SERUM 7.6 MG/DL (8.5-10.4); CHLORIDE, SERUM 106 MMOL/L (96-112); CO2 (CARBON DIOXIDE) 25 MMOL/L (24-34); CREATININE 0.88 MG/DL (0.70-1.30); GFR AFRICAN AMERICAN 94 ML/MIN (>=60); GFR NON AFRICAN AMERICAN 81 ML/MIN (>=60); GLUCOSE, SERUM 127 MG/DL (60-99); POTASSIUM, SERUM 3.5 MMOL/L (3.5-5.3); SODIUM, SERUM 141 MMOL/L (135-148)
[2016-11-22 03:32] LABS: BASOPHILS 0.4 %; BASOPHILS ABSOLUTE 0.04 10/3/uL (0.0-0.16); EOSINOPHILS ABSOLUTE 0.22 10/3/uL (0.0-0.53); HEMATOCRIT 38.5 % (40.0-51.0); HEMOGLOBIN 13.1 g/dL (13.6-17.8); IMMATURE GRANULOCYTES 1.2 %; IMMATURE GRANULOCYTES ABSOLUTE 0.13 10/3/uL (0.0-0.11); LYMPHOCYTES 12.6 %; LYMPHOCYTES ABSOLUTE 1.38 10/3/uL (0.67-4.30); MANUAL DIFF NO %; MEAN CORPUSCULAR HEMOGLOB 32.3 pg (26.0-34.0); MEAN CORPUSCULAR VOLUME 94.8 fL (80-100); MEAN PLATELET VOLUME 10.4 fL (9.2-13.0); MONOCYTES 6.7 %; MONOCYTES ABSOLUTE 0.73 10/3/uL (0.21-1.20); NEUTROPHILS 77.1 %; NEUTROPHILS ABSOLUTE 8.46 10/3/uL (2.02-8.40); PLATELET COUNT 155 10/3/uL (150-400); RBC DISTRIBUTION WIDTH 16.8 % (12.0-16.0); RED CELL COUNT 4.06 10/6/uL (4.7-6.1)
[2016-11-22 03:40] LABS: INTERNATIONAL NORMAL RATI 1.7 UNITS (-)
[2016-11-22 03:59] LABS: PROTIME (NOT ORD) 19.9 SEC (12.0-14.5)
[2016-11-22 04:03] LABS: BUN (BLOOD UREA NITROGEN) 13 MG/DL (6-23); CALCIUM, SERUM 7.9 MG/DL (8.5-10.4); CHLORIDE, SERUM 108 MMOL/L (96-112); CO2 (CARBON DIOXIDE) 27 MMOL/L (24-34); CREATININE 0.88 MG/DL (0.70-1.30); FREE T4 0.87 NG/DL (0.76-1.46); GFR AFRICAN AMERICAN 94 ML/MIN (>=60); GFR NON AFRICAN AMERICAN 81 ML/MIN (>=60); GLUCOSE, SERUM 137 MG/DL (60-99); POTASSIUM, SERUM 3.8 MMOL/L (3.5-5.3); SODIUM, SERUM 141 MMOL/L (135-148)
[2016-11-22 04:04] LABS: DIGOXIN 0.7 NG/ML (0.8-2.0)
[2016-11-22 12:11] LABS: PROCALCITONIN 1.26 ng/mL (<0.5)
[2016-11-23 07:23] LABS: INTERNATIONAL NORMAL RATI 1.4 UNITS (-); PROTIME (NOT ORD) 17.3 SEC (12.0-14.5)
[2016-11-23 07:34] LABS: BUN (BLOOD UREA NITROGEN) 10 MG/DL (6-23); CALCIUM, SERUM 7.9 MG/DL (8.5-10.4); CHLORIDE, SERUM 105 MMOL/L (96-112); CO2 (CARBON DIOXIDE) 20 MMOL/L (24-34); GFR AFRICAN AMERICAN 98 ML/MIN (>=60); GFR NON AFRICAN AMERICAN 84 ML/MIN (>=60); GLUCOSE, SERUM 117 MG/DL (60-99); POTASSIUM, SERUM 3.9 MMOL/L (3.5-5.3); SODIUM, SERUM 138 MMOL/L (135-148)
[2016-11-23 13:03] LABS: INTERNATIONAL NORMAL RATI 1.4 UNITS (-)
[2016-11-24 08:18] LABS: BASOPHILS 0.4 %; BASOPHILS ABSOLUTE 0.04 10/3/uL (0.0-0.16); EOSINOPHILS 1.4 %; EOSINOPHILS ABSOLUTE 0.14 10/3/uL (0.0-0.53); HEMATOCRIT 35.2 % (40.0-51.0); HEMOGLOBIN 12.3 g/dL (13.6-17.8); IMMATURE GRANULOCYTES 0.7 %; IMMATURE GRANULOCYTES ABSOLUTE 0.07 10/3/uL (0.0-0.11); LYMPHOCYTES 16.4 %; LYMPHOCYTES ABSOLUTE 1.59 10/3/uL (0.67-4.30); MEAN CORPUS HGB CONC 34.9 g/dL (32.0-36.0); MEAN CORPUSCULAR HEMOGLOB 32.1 pg (26.0-34.0); MEAN PLATELET VOLUME 10.2 fL (9.2-13.0); MONOCYTES 10.9 %; MONOCYTES ABSOLUTE 1.06 10/3/uL (0.21-1.20); NEUTROPHILS 70.2 %; NEUTROPHILS ABSOLUTE 6.82 10/3/uL (2.02-8.40); PLATELET COUNT 174 10/3/uL (150-400); RBC DISTRIBUTION WIDTH 16.7 % (12.0-16.0); RED CELL COUNT 3.83 10/6/uL (4.7-6.1); WHITE BLOOD CELLS 9.7 10/3/uL (4.5-10.5)
[2016-11-24 08:20] LABS: MANUAL DIFF NO %; MEAN CORPUSCULAR VOLUME 91.9 fL (80-100)
[2016-11-24 08:25] LABS: INTERNATIONAL NORMAL RATI 1.7 UNITS (-); PROTIME (NOT ORD) 19.5 SEC (12.0-14.5)
[2016-11-24 08:56] LABS: BUN (BLOOD UREA NITROGEN) 8 MG/DL (6-23); CALCIUM, SERUM 7.9 MG/DL (8.5-10.4); CHLORIDE, SERUM 103 MMOL/L (96-112); CO2 (CARBON DIOXIDE) 22 MMOL/L (24-34); CREATININE 0.72 MG/DL (0.70-1.30); GFR AFRICAN AMERICAN 102 ML/MIN (>=60); GFR NON AFRICAN AMERICAN 88 ML/MIN (>=60); GLUCOSE, SERUM 117 MG/DL (60-99); POTASSIUM, SERUM 3.6 MMOL/L (3.5-5.3); SODIUM, SERUM 136 MMOL/L (135-148)
[2016-11-24 08:59] LABS: FOLATE 3.6 NG/ML (>5.2)
[2016-11-25 06:26] LABS: PROTIME (NOT ORD) 22.6 SEC (12.0-14.5)
[2016-11-26 06:57] LABS: BASOPHILS 0.8 %; BASOPHILS ABSOLUTE 0.06 10/3/uL (0.0-0.16); EOSINOPHILS 1.2 %; EOSINOPHILS ABSOLUTE 0.09 10/3/uL (0.0-0.53); HEMATOCRIT 36.8 % (40.0-51.0); HEMOGLOBIN 12.6 g/dL (13.6-17.8); IMMATURE GRANULOCYTES 0.7 %; IMMATURE GRANULOCYTES ABSOLUTE 0.05 10/3/uL (0.0-0.11); LYMPHOCYTES 28.4 %; LYMPHOCYTES ABSOLUTE 2.05 10/3/uL (0.67-4.30); MEAN CORPUS HGB CONC 34.2 g/dL (32.0-36.0); MEAN CORPUSCULAR HEMOGLOB 31.7 pg (26.0-34.0); MEAN CORPUSCULAR VOLUME 92.7 fL (80-100); MEAN PLATELET VOLUME 9.8 fL (9.2-13.0); MONOCYTES 13.4 %; MONOCYTES ABSOLUTE 0.97 10/3/uL (0.21-1.20); NEUTROPHILS 55.5 %; NEUTROPHILS ABSOLUTE 4.01 10/3/uL (2.02-8.40); PLATELET COUNT 191 10/3/uL (150-400); RBC DISTRIBUTION WIDTH 16.8 % (12.0-16.0); RED CELL COUNT 3.97 10/6/uL (4.7-6.1); WHITE BLOOD CELLS 7.2 10/3/uL (4.5-10.5)
[2016-11-26 07:00] LABS: MANUAL DIFF NO %
[2016-11-26 07:06] LABS: INTERNATIONAL NORMAL RATI 2.3 UNITS (-)
== END 2016-11-26 12:13 | DRG 853 ==
LOC: 6NO 14:22 → SDC/OF 11-16 20:38 → MIC 11-16 22:03 → 5SO 11-20 14:07
PROVIDERS: Hospitalist; Internal Medicine; Internal Medicine Critical Care Medicine; Internal Medicine Pulmonary Disease; Surgery
PROC: 30233N1 Transfusion of Nonautologous Red Blood Cells into Peripheral Vein, Percutaneous Approach (ICD-10-PCS; 2016-11-16)
PROC: 30233K1 Transfusion of Nonautologous Frozen Plasma into Peripheral Vein, Percutaneous Approach (ICD-10-PCS; 2016-11-16)
PROC: 0FJB0ZZ Inspection of Hepatobiliary Duct, Open Approach (ICD-10-PCS; principal; 2016-11-16 18:45)
PROC: 0FT40ZZ Resection of Gallbladder, Open Approach (ICD-10-PCS; 2016-11-16 18:45)
PROC: 0FJ44ZZ Inspection of Gallbladder, Percutaneous Endoscopic Approach (ICD-10-PCS; 2016-11-16 18:45)
PROC: 0WQF0ZZ Repair Abdominal Wall, Open Approach (ICD-10-PCS; 2016-11-16 18:45)
DX: A41.9 Sepsis, unspecified organism (principal); J95.821 Acute postprocedural respiratory failure; E87.2 Acidosis; K80.63 Calculus of gallbladder and bile duct with acute cholecystitis with obstruction; D69.6 Thrombocytopenia, unspecified; K42.0 Umbilical hernia with obstruction, without gangrene; J98.11 Atelectasis; I48.2 Chronic atrial fibrillation; Z79.01 Long term (current) use of anticoagulants; I10 Essential (primary) hypertension; Z79.899 Other long term (current) drug therapy; F03.90 Unspecified dementia, unspecified severity, without behavioral disturbance, psychotic disturbance, mood disturbance, and anxiety
CPT/HCPCS: 31720; 36415; 71010; 74300; 76000; 78226; 80048; 80053; 80069; 80076; 80162; 82607; 82746; 82805; 83605; 83735; 84100; 84132; 84145; 84439; 84443; 85014; 85018; 85025; 85610; 86900; 86901; 87015; 87070; 87075; 87077; 87102; 87116; 87186; 87205; 87641; 88302; 88304; 93005; 94002; 94003; 94640; 94660; 94762; 97110-GP; 97116-GP; 97162-GP; A9270-GY; A9537; C9113; G8978-CL-GP; G8979-CK-GP; J0360; J1160; J1170; J2250; J2370; J2405; J2543; J2710; J3010; J3411; P9059; Q9967